=== PATIENT | male | born 1970 | race African-American/Black ===

== ENCOUNTER 2019-08-21 13:01 | Emergency (ER) | payer SELFPAY ==
[2019-08-21 13:06] VITALS: BP 138/93
--- NOTE | 2019-08-21 13:53 | XRAY Report ---
Reason: cough Procedure Date: 08/21/2019 Accession Number: [id number] / [id number] Procedure: XR - Chest 2 View X-Ray CPT Code: 94688 FULL RESULT: EXAM: CHEST RADIOGRAPHY EXAM DATE: 08/21/2019 01:38 PM. CLINICAL HISTORY: Cough. COMPARISON: None. TECHNIQUE: 2 views. FINDINGS: Lungs/Pleura: No focal opacities evident. No pleural effusion. No pneumothorax. Normal volumes. Mediastinum: Heart and mediastinal contours are unremarkable. Other: None. IMPRESSION: Normal 2-view chest radiography. [facility]
--- NOTE | 2019-08-21 14:46 | ED Physician Documentation ---
History of Present Illness - Stated complaint Stated Complaint: COUGH AND CONGESTION - Chief complaint Chief Complaint: Resp - Additonal information Additional information: This is a 48-year-old male with a history of hypertension and tobacco use who presents with 2 weeks of cough, congestion, and nasal drainage. Patient states that he began having cold symptoms 2 weeks ago and many other people at his work had similar symptoms. His symptoms got better but then worsened again and over the last 5 days or so. He states he is coughing up greenish-yellow mucus, he has copious nasal drainage, and he has some tenderness over his frontal sinuses. He denies fever at this time. He denies chest pain. Review of Systems Constitutional: denies: Fever Nose: reports: Rhinorrhea / runny nose Cardiac: denies: Chest pain / pressure Respiratory: reports: Cough. denies: Dyspnea PD PAST MEDICAL HISTORY - Past Medical History Cardiovascular: Hypertension Respiratory: Other (tobacco use) - Present Medications Home Medications: Ambulatory Orders Medication Instructions Recorded Confirmed Amox/Clav 875/125 [Augmentin] 1 each PO Q12H #14 tablet 08/21/19 Benzonatate [Tessalon Perle] 100 - 200 mg PO TID PRN #30 capsule 08/21/19 - Allergies Allergies/Adverse Reactions: Allergies Allergy/AdvReac Type Severity Reaction Status Date / Time lisinopril Allergy Unknown Verified 08/21/19 13:06 PD ED PE NORMAL - Vitals Vital signs reviewed: Yes - General General: Alert and oriented X 3, No acute distress - HEENT HEENT: Other (Mild frontal sinus tenderness. Clear to green nasal drainage. Posterior pharynx is erythematous, there is no exudate. Uvula is midline) - Neck Neck: Supple, no meningeal sign - Cardiac Cardiac: RRR - Respiratory Respiratory: Clear bilaterally - Abdomen Abdomen: Soft, Non tender, Non distended - Derm Derm: Warm and dry - Extremities Extremities: No deformity - Neuro Neuro: Alert and oriented X 3 - Psych Psych: Normal mood, Normal affect Results - Vitals Vitals: Vital Signs - 24 hr 08/21/19 13:04 Temperature 36.8 C Heart Rate 86 Respiratory 15 Rate Blood Pressure 138/93 H O2 Saturation 99 Oxygen O2 Source Room air - Rads (name of study) CXR Radiology: Other (Normal CXR) PD MEDICAL DECISION MAKING - ED course Complexity details: considered differential (URI, sinusitis, pneumonia) ED course: Pt is non-toxic on exam. CXR negative. Given the persistence of his symptoms, the double worsening, and his sinus tenderness, we will treat for bacterial sinusitis with augmentin. I discussed supportive care and return precautions. Patient agreed ans was discharged home. Departure - Departure Disposition: Home, Self Care Clinical Impression: Sinusitis Qualifiers: Sinusitis location: frontal Chronicity: acute Recurrence: not specified as recurrent Qualified Code(s): J01.10 - Acute frontal sinusitis, unspecified URI (upper respiratory infection) Qualifiers: URI type: unspecified viral URI Qualified Code(s): J06.9 - Acute upper respiratory infection, unspecified Condition: Good Instructions: ED Sinusitis Abx Tx Follow-Up: Your,PCP [Other] - Within 1 week Prescriptions: Amox/Clav 875/125 [Augmentin] 1 each PO Q12H #14 tablet Benzonatate [Tessalon Perle] 100 - 200 mg PO TID PRN #30 capsule PRN Reason: Cough Comments: You appear to have a sinusitis. Take the antibiotic as prescribed. You may also try the Tessalon Perles for cough. If you develop worsening symptoms such as severe headache or shortness of breath, return to the emergency department. Forms: Activity restrictions Discharge Date/Time: 08/21/19 15:31
== END 2019-08-21 15:31 | disposition home or self-care (01) ==
LOC: ED 13:01
DX: J01.10 Acute frontal sinusitis, unspecified (principal); J06.9 Acute upper respiratory infection, unspecified; I10 Essential (primary) hypertension; Z72.0 Tobacco use
CPT/HCPCS: 71046; 99283; 99284

== ENCOUNTER 2019-09-02 17:57 | Emergency (ER) | payer SELFPAY ==
[2019-09-02 18:03] VITALS: BP 138/93
--- NOTE | 2019-09-02 18:54 | ED Physician Documentation ---
History of Present Illness - Stated complaint Stated Complaint: BP MEDS - Chief complaint Chief Complaint: Cardiac - History obtained from History obtained from: Patient - History of Present Illness Timing: Today (48-year-old gentleman just moved to the area, he is out of his blood pressure medications and here requesting a refill. He has no specific complaints.) Review of Systems Ears: reports: Reviewed and negative Cardiac: reports: Reviewed and negative Respiratory: reports: Reviewed and negative PD PAST MEDICAL HISTORY - Past Medical History Cardiovascular: Hypertension Respiratory: Other (tobacco use) - Past Surgical History Past Surgical History: No - Present Medications Home Medications: Ambulatory Orders Medication Instructions Recorded Confirmed Amox/Clav 875/125 [Augmentin] 1 each PO Q12H #14 tablet 08/21/19 Benzonatate [Tessalon Perle] 100 - 200 mg PO TID PRN #30 capsule 08/21/19 Amlodipine Besylate [Norvasc] 10 mg PO DAILY #60 tablet 09/02/19 Metoprolol Tartrate 25 mg PO DAILY #60 tablet 09/02/19 - Allergies Allergies/Adverse Reactions: Allergies Allergy/AdvReac Type Severity Reaction Status Date / Time lisinopril Allergy Unknown Verified 09/02/19 17:59 - Social History Does the pt smoke?: Yes Smoking Status: Current every day smoker Does the pt drink ETOH?: Yes Does the pt have substance abuse?: No - Immunizations Immunizations are current?: No - POLST Patient has POLST: No PD ED PE NORMAL - Vitals Vital signs reviewed: Yes - General General: Alert and oriented X 3, No acute distress - Extremities Extremities: No edema - Neuro Neuro: Alert and oriented X 3, Normal speech - Psych Psych: Normal mood, Normal affect Results - Vitals Vitals: Vital Signs - 24 hr 09/02/19 17:59 Temperature 36.6 C Heart Rate 93 Respiratory 16 Rate Blood Pressure 138/93 H O2 Saturation 100 Oxygen O2 Source Room air Departure - Departure Disposition: 01 Home, Self Care Clinical Impression: Hypertension Qualifiers: Hypertension type: essential hypertension Qualified Code(s): I10 - Essential (primary) hypertension Condition: Good Record reviewed to determine appropriate education?: Yes Instructions: ED HTN Established Follow-Up: [facility] [Provider Group] [facility] [Provider Group] [facility] [Provider Group] Prescriptions: Amlodipine Besylate [Norvasc] 10 mg PO DAILY #60 tablet Metoprolol Tartrate 25 mg PO DAILY #60 tablet Forms: Activity restrictions
== END 2019-09-02 18:57 | disposition home or self-care (01) ==
LOC: ED 17:57
DX: I10 Essential (primary) hypertension (principal); Z76.0 Encounter for issue of repeat prescription; F17.200 Nicotine dependence, unspecified, uncomplicated
CPT/HCPCS: 99282; 99283

== ENCOUNTER 2019-10-07 11:17 | Emergency (ER) | payer SELFPAY ==
[2019-10-07 11:25] VITALS: BP 132/89
== END 2019-10-07 12:44 | disposition left against medical advice (07) ==
LOC: ED 11:17
DX: Z53.21 Procedure and treatment not carried out due to patient leaving prior to being seen by health care provider (principal)